=== PATIENT | female | born 1990 | race Two or more races ===

== ENCOUNTER 2016-09-15 21:07 | Emergency (ER) | payer MEDICAID ==
[~2016-09-15] VITALS: Ht 162.6 cm; Wt 66.7 kg
[~2016-09-15 21:07] MED LIST: ACETAMINOPHEN-1 EAC1 ORAL; CYCLOBENZAPRINE10 MG ORAL; IBUPROFEN600 MG ORAL; KEFLEX500 MG ORAL; NKM; ZOFRAN ODT4 MG ORAL
[2016-09-15 21:15] VITALS: BP 135/88
--- NOTE | 2016-09-15 21:20 | Emergency Room Report ---
History of Present Illness General Chief Complaint: Pain Source: Patient Present Illness HPI Is a 26-year-old female who is right-hand dominant. She presents with chief complaint of injury to her right fifth finger. Onset about 2 hours prior to arrival. She was playing basketball and the ball hit her the tip of the finger. It woke her her finger. Now she complaining of pain over the PIP joint of the fifth right finger. Swelling. Pain is 8/10. Worse with movement. No other injury. Allergies: Coded Allergies: No Known Allergies (Unverified , 03/05/15) Patient History Past Medical History: none, see triage record, old chart reviewed Past Surgical History: none Pertinent Family History: none Social History: Denies: smoking Last Menstrual Period: 08/22/16 Now: No Immunizations: other Reviewed Nursing Documentation: PMH: Agreed, PSxH: Agreed Nursing Documentation-PMH Past Medical History: No Stated History Review of Systems Eye: Denies: blurred vision, eye pain ENT: Denies: ear pain, nose congestion, throat swelling Respiratory: Denies: cough, shortness of breath Cardiovascular: Denies: chest pain, palpitations Gastrointestinal: Denies: abdominal pain, diarrhea, nausea, vomiting Musculoskeletal: Reports: joint pain, Denies: back pain Skin: Denies: rash Neurological: Denies: headache, numbness Endocrine: Denies: increased thirst, increased urine Hematologic/Lymphatic: Denies: easy bruising All Other Systems: negative except mentioned in HPI Physical Exam Vital Signs Date Time Temp Pulse Resp B/P Pulse Ox O2 Delivery O2 Flow Rate FiO2 09/15/16 21:11 98.1 97 16 135/88 100 Room Air vitals normal Sp02 EP Interpretation: reviewed, normal General Appearance: well appearing, no apparent distress, alert Head: normocephalic, atraumatic Eyes: bilateral eye EOMI, bilateral eye PERRL ENT: hearing grossly normal, normal pharynx Neck: full range of motion, supple, no meningismus Respiratory: chest non-tender, lungs clear, normal breath sounds Cardiovascular #1: regular rate, rhythm, no murmur Gastrointestinal: normal bowel sounds, non tender, no mass, no organomegaly, no bruit, non-distended Musculoskeletal: back normal, gait/station normal, other - Right fifth finger: There is tenderness and edema to the PIP joint. Decreased range of motion secondary to pain. Sensation normal. Psychiatric: mood/affect normal Skin: warm/dry Procedures Splinting Splinting : Consent: Verbal Location: rt 5th finger Pre-Proc Neuro Vasc Exam: normal Post-Proc Neuro Vasc Exam: normal Patient Tolerated: Well Complications: None Medical Decision Making Diagnostic Impression: Primary Impression: Closed fracture dislocation of proximal interphalangeal (PIP) joint of finger Qualified Codes: S62.619A - Displaced fracture of proximal phalanx of unspecified finger, initial encounter for closed fracture ER Course Patient presents with close fracture of the right PIP joint. No dislocation. We'll splint and discharge home. Other X-Ray Diagnostic Results Other X-Ray Diagnostic Results : X-Ray ordered: Right fifth finger # of Views/Limited Vs Complete: 3 View EP Interpretation: Yes Interpretation: no dislocation, no soft tissue swelling, other - Proximal phalangeal fracture Indication: Pain Impression: Other - Avulsion fracture of the proximal phalanx of PIP joint Interpreting ER Provider: Electronically interpreted by Chacho Pappas MD Last Vital Signs Date Time Temp Pulse Resp B/P Pulse Ox O2 Delivery O2 Flow Rate FiO2 09/15/16 21:15 98.1 97 16 135/88 100 Room Air Status: improved Disposition: HOME, SELF-CARE Condition: Stable Scripts Hydrocodone/Acetaminophen 5-325* (HYDROCODONE/ACETAMINOPHEN 5-325*) 1 Each Tablet 1 TAB ORAL Q6H Y for For Pain, #30 TAB 0 Refills Prov: CHACHO PAPPAS M.D. 09/15/16 Additional Instructions: Wear splint. Followup with your Dr. for followup with orthopedic Dr. Follow within a week. Return if worse. CHACHO PAPPAS M.D. Sep 15, 2016 21:20
[2016-09-15] MEDS ORDERED: Norco 5mg/325mg tab ORAL ONE (21:30)
[2016-09-15] MEDS ORDERED: HYDROCODON-ACE1 EA15 ORAL (21:55)
[2016-09-15 22:00] VITALS: BP 127/86
--- NOTE | 2016-09-16 10:21 | Diagnostic Imaging Report ---
Indication: Pain Comparison: None Findings: 3 views of the right fifth digit obtained. No fracture identified. Alignment is normal. Impression: No acute injury identified
== END 2016-09-15 22:00 | disposition home or self-care (01) ==
LOC: EMR 21:28
DX: S62.616A Displaced fracture of proximal phalanx of right little finger, initial encounter for closed fracture (principal); Y93.67 Activity, basketball; Y92.89 Other specified places as the place of occurrence of the external cause
CPT/HCPCS: 29130; 99283